=== PATIENT | male | born 1950 | race Caucasian/White ===

== ENCOUNTER → 2024-08-26 08:18 | Outpatient (CLI) | payer MEDICARE, OTHER, SELFPAY ==
--- NOTE | 2024-08-26 | DI.US.S_ITS ---
PROCEDURE: US ABD AORTA ANEURYSM SCREEN INDICATIONS: SCREENING TECHNIQUE: Real time scanning was performed of the aorta and iliac arteries, with image documentation. COMPARISON: None. FINDINGS: Aorta: Proximal aortic diameter measures 2.2 cm. Mid-aorta measures 1.9 cm. Distal aortic aneurysm measuring 3.6 x 2.9 x 2.8 cm (length by width by AP). Iliac arteries: Right common iliac artery measures 1.3 cm. Left common iliac artery measures 1.2 cm. IMPRESSION: Distal aortic aneurysm which appears to be infrarenal measuring up to 2.9 x 2.8 cm in greatest transverse dimension and 3.6 cm in length. Recommend 3 year follow-up ultrasound. Dictated by: Benny Kenyon M.D. on 08/26/2024 at 9:57 Approved by: Benny Kenyon M.D. on 08/26/2024 at 10:00
== END ==
PROVIDERS: PCP Family Medicine; Referring Provider Family Medicine; Visit Provider Family Medicine
DX: Z13.6 Encounter for screening for cardiovascular disorders (principal); I71.40 Abdominal aortic aneurysm, without rupture, unspecified
CPT/HCPCS: 76706

== ENCOUNTER → 2024-09-17 09:24 | Outpatient (CLI) | payer MEDICARE, OTHER, SELFPAY ==
--- NOTE | 2024-09-17 19:47 | DI.NM.S_ITS ---
DATE OF SERVICE: 09/17/2024 EXERCISE PERFUSION STUDY INDICATIONS: Chest pain, hyperlipidemia, abnormal EKG. RADIOPHARMACEUTICAL: 26.4 millicuries technetium-99m Myoview IV was injected at stress and 12.8 mCi technetium-99m Myoview IV was injected at rest. CARDIAC STRESS: The patient underwent exercise perfusion study under the supervision of an attending staff. He walked on Cm protocol for 5 minutes 24 seconds. Resting blood pressure 118/92 and peak blood pressure 156/90. Maximum heart rate 217 at peak exercise. At that time, patient had wide QRS tachycardia. 147% of target heart rate. 7 METs of workload. Baseline rhythm sinus and up to 0.[address] depression in the inferolateral leads. At rest, patient has short run of atrial tachycardia as well as occasional PVCs. During exercise, the patient developed 2-[address] depression in inferior lead and V3 to V6 as well as at least [address] elevation in AVR. At peak exercise, patient developed wide QRS tachycardia, rate 214 beats per minute, with secondary repolarization changes. Differential diagnosis: SVT with aberrant conduction versus V-tach, which got converted to sinus with vagal. At around 1.46 minutes into the recovery, the patient had about [address] depression in the inferior leads and leads V3 to V6 with [address] elevation in AVR. Intermittent short run of atrial tachycardia. Prolonged recovery. The patient had significant shortness of breath with exercise as well as dizziness and palpitations. RAW DATA: There is increased subdiaphragmatic activity. GATED STUDY: Resting LV ejection fraction 74% and stress LV ejection fraction 68%. Resting end-diastolic volume 73 mL. TID ratio 1.26, which is abnormal. Lung/heart ratio 0.36. MYOCARDIAL PERFUSION SCAN: Stress supine, resting supine and stress prone images were compared to each other. Stress supine and resting supine images revealed large size, [id number] decreased perfusion of inferior wall extending into the mid to distal inferolateral wall and inferior apex, which got partially improved during stress prone images. In the stress prone images, inferior wall defect got resolved; however, patient has moderate size moderately decreased perfusion of the distal inferolateral wall. No significant reversible ischemia. CONCLUSION: This is an abnormal myocardial perfusion study. On perfusion scan, there is evidence of distal inferolateral infarction with evidence of diaphragmatic tissue attenuation artifact as well. However, the patient has abnormal TID 1.26, significant ischemic EKG changes as stated above as well as [address] elevation in AVR. At rest, patient has short run of atrial tachycardia. At peak exercise, patient had short run of wide QRS tachycardia with differential diagnosis of atrial tachycardia with aberrant conduction versus ventricular tachycardia. However, it was responded to vagal maneuver. Had significant shortness of breath and dizziness and palpitations. Stress LV function less than resting LV function. Diminished exercise tolerance. Abnormal TID, suggestive of multivessel or left main disease. Consider aggressive medical management as well as left heart catheterization to delineate coronary artery. I spoke to [facility] medical scientific liaison Dr. Mujica who is covering Dr. Barrow and discussed the test result. RonaHitesh - JEANETH/wily/AY doc#: [id number]/job#: [id number] dd: 09/17/2024 16:36:00 dt: 09/17/2024 19:03:00 DICTATING MD/COPIES TO: Ely Arredondo MD; Dr. Barrow COPIES MNE: MARY; ; Dr. Barrow
== END ==
PROVIDERS: PCP Family Medicine; Referring Provider Internal Medicine Cardiovascular Disease; Visit Provider Internal Medicine Cardiovascular Disease
DX: R07.9 Chest pain, unspecified (principal); R94.39 Abnormal result of other cardiovascular function study; R94.31 Abnormal electrocardiogram [ECG] [EKG]; E78.2 Mixed hyperlipidemia
CPT/HCPCS: 78452; 93017; A9502